=== PATIENT | male | born 1945 | race Caucasian/White ===

== ENCOUNTER 2017-03-22 01:50 | Emergency (ER) | payer OTHER, MEDICARE ==
--- NOTE | 2017-03-22 02:19 | PDOC ---
History of Present Illness - General History Source: Patient Exam Limitations: No Limitations - History of Present Illness Initial Comments: 03/22/17 03:27 The patient is a 72 year old male, with significant past medical history of Parkinson's, CHF, BPH, HTN, depression, who presents from [facility] with head injury and abrasion on the right wong s/p fall. The patient explains that he was attempting to get his cup of water across the room without his walker. He was shuffling while holding onto the bed and fell and hit his head. He did not lose consciousness. He is unsure when his last tetanus shot was. Denies LOC. Denies lightheadedness, dizziness. Denies vision changes. Denies chest pain, SOB. Allergies: penicillin <Felisha Kohli - Last Filed: 03/22/17 03:29> <Sarah Sloan - Last Filed: 03/23/17 04:37> - General Chief Complaint: Injury Stated Complaint: FALL Time Seen by Provider: 03/22/17 02:14 Past History <Felisha Kohli - Last Filed: 03/22/17 03:29> - Past Medical History Anemia: No Asthma: No Cancer: No Cardiac Disorders: No COPD: No CHF: Yes Diabetes: Yes (DIET CONTROL) GI Disorders: No Disorders: Yes (BPH) HTN: Yes Hypercholesterolemia: No Liver Disease: No Psychiatric Problems: Yes (ANXIETY, DEPRESSION) Thyroid Disease: No - Surgical History Abdominal Surgery: No Appendectomy: No Cardiac Surgery: No Cholecystectomy: No Lung Surgery: No Neurologic Surgery: No Orthopedic Surgery: No - Immunization History Immunization Up to Date: Yes - Psycho/Social/Smoking Cessation Hx Anxiety: No Suicidal Ideation: No Smoking History: Never smoked Have you smoked in the past 12 months: No Information on smoking cessation initiated: No Hx Alcohol Use: No Drug/Substance Use Hx: No Substance Use Type: None <Sarah Sloan - Last Filed: 03/23/17 04:37> - Past Medical History Allergies/Adverse Reactions: Allergies Allergy/AdvReac Type Severity Reaction Status Date / Time Penicillins Allergy Unknown Verified 03/22/17 01:59 Home Medications: Ambulatory Orders Aspirin/Calcium Carbonate/Mag [Aspirin Buffered 325 mg Tab] 325 mg PO DAILY Atenolol [Tenormin -] 25 mg PO DAILY 01/22/15 Carbidopa/Levodopa [Sinemet 25-100 mg Tablet] 1 each PO BID 01/22/15 Carbidopa/Levodopa [Sinemet 25-250 mg Tablet] 2 each PO TID 01/22/15 Clonazepam [Klonopin] 0.5 mg PO TID 01/22/15 Docusate Sodium [Colace] 300 mg PO HS 01/22/15 Gabapentin 800 mg PO TID 01/22/15 Lisinopril [Prinivil -] 10 mg PO DAILY 01/22/15 Magnesium Hydrox 2400MG/30Ml [Milk of Magnesia] 30 ml PO DAILY PRN 01/22/15 Polyethylene Glycol 3350 [Miralax (For Daily Use) -] 119 gm PO DAILY PRN Tamsulosin HCl [Flomax] 0.4 mg PO DAILY 01/22/15 Venlafaxine HCl ER [Effexor Xr -] 75 mg PO BID 01/22/15 FENTANYL 25mcg PATCH [DURAGESIC 25mcg PATCH -] 1 each TD Q72H 02/01/16 Finasteride 5 mg PO DAILY 02/01/16 Menthol [Icy Hot] 1 each TP DAILY 02/01/16 Pregabalin [Lyrica] 25 mg PO DAILY 02/01/16 Simethicone 80 mg PO BID 02/01/16 Review of Systems - Review of Systems Able to Perform ROS?: Yes Comments:: 03/22/17 03:28 GENERAL/CONSTITUTIONAL: No fever or chills. No weakness. HEAD, EYES, EARS, NOSE AND THROAT: +head truama. No change in vision. No ear pain or discharge. No sore throat. CARDIOVASCULAR: No chest pain or shortness of breath. RESPIRATORY: No cough, wheezing, or hemoptysis. GASTROINTESTINAL: No nausea, vomiting, diarrhea or constipation. GENITOURINARY: No dysuria, frequency, or change in urination. MUSCULOSKELETAL: No joint or muscle swelling or pain. No neck or back pain. SKIN: +abrasion on the RLE. No rash NEUROLOGIC: No headache, vertigo, loss of consciousness, or change in strength/ sensation. ENDOCRINE: No increased thirst. No abnormal weight change. HEMATOLOGIC/LYMPHATIC: No anemia, easy bleeding, or history of blood clots. ALLERGIC/IMMUNOLOGIC: No hives or skin allergy. <Felisha Kohli - Last Filed: 03/22/17 03:29> *Physical Exam - Vital Signs Last Vital Signs Temp Pulse Resp BP Pulse Ox 98.0 F 90 19 127/73 96 03/22/17 01:59 03/22/17 01:59 03/22/17 01:59 03/22/17 01:59 03/22/17 01:59 - Physical Exam Comments: 03/22/17 03:28 GENERAL: Awake, alert, and fully oriented, in no acute distress HEAD: +Abrasion on the left parietal scalp EYES: PERRLA, EOMI, sclera anicteric, conjunctiva clear ENT: Auricles normal inspection, hearing grossly normal, nares patent, oropharynx clear without exudates. Moist mucosa NECK: Normal ROM, supple, no lymphadenopathy, JVD, or masses LUNGS: Breath sounds equal, clear to auscultation bilaterally. No wheezes, and no crackles HEART: Regular rate and rhythm, normal S1 and S2, no murmurs, rubs or gallops ABDOMEN: Soft, nontender, normoactive bowel sounds. No guarding, no rebound. No masses EXTREMITIES: +Scraped knees bilaterally, abrasions on the right wong. Normal range of motion, no edema. No clubbing or cyanosis. No cords, erythema, or tenderness NEUROLOGICAL: Cranial nerves II through XII grossly intact. Normal speech, normal gait SKIN: Warm, Dry, normal turgor, no rashes or lesions noted. <Felisha Kohli - Last Filed: 03/22/17 03:29> - Vital Signs Last Vital Signs Temp Pulse Resp BP Pulse Ox 98.0 F 90 19 127/73 96 03/22/17 01:59 03/22/17 01:59 03/22/17 01:59 03/22/17 01:59 03/22/17 01:59 <Sarah Sloan - Last Filed: 03/23/17 04:37> ED Treatment Course - RADIOLOGY Radiograph Interpretation: 03/22/17 03:29 Exam: Noncontrast CT head Images: 174 Clinical indication: Status post fall at the halfway. Reformatted coronal and sagittal images were provided. Findings: Multiple axial images were obtained of the brain without contrast. There is no mass-effect, midline shift or hemorrhage. There is no intra-axial or extra-axial fluid collection. Atrophic involutional changes are noted and are relatively mild for the patient's stated age. The visualized portions of the paranasal sinuses are clear. The middle ear cavities and mastoids are clear. No calvarial fractures seen. Impression: No mass effect or intracranial hemorrhage. THIS DOCUMENT HAS BEEN ELECTRONICALLY SIGNED Everardo Beaulieu M.D. <Felisha Kohli - Last Filed: 03/22/17 03:29> Medical Decision Making - Medical Decision Making 03/22/17 03:29 Patient Name: Rehan Jeter This is a preliminary report by imaging senior international tax manager Exam: Noncontrast CT head Images: 174 Clinical indication: Status post fall at the halfway. Reformatted coronal and sagittal images were provided. Findings: Multiple axial images were obtained of the brain without contrast. There is no mass-effect, midline shift or hemorrhage. There is no intra-axial or extra-axial fluid collection. Atrophic involutional changes are noted and are relatively mild for the patient's stated age. The visualized portions of the paranasal sinuses are clear. The middle ear cavities and mastoids are clear. No calvarial fractures seen. Impression: No mass effect or intracranial hemorrhage. THIS DOCUMENT HAS BEEN ELECTRONICALLY SIGNED 03/23/17 04:35 Pt fell at the [place] last night. He was found and sent for CT head. He has scrapes on his knees and shins. He has a scrape on the left parietal area. Head CT normal. 03/23/17 04:36 Pt given a tetanus vaccine in the ER. <Sarah Sloan - Last Filed: 03/23/17 04:37> *DC/Admit/Observation/Transfer - Attestations Scribe Attestion: 03/22/17 03:30 Documentation prepared by HALI Helm, acting as medical technician for Sarah Sloan MD. <Felisha Kohli - Last Filed: 03/22/17 03:29> - Discharge Dispostion Admit: No <Sarah Sloan - Last Filed: 03/23/17 04:37> Diagnosis at time of Disposition: Fall - Discharge Dispostion Disposition: LONG-TERM FACILITY Condition at time of disposition: Stable - Referrals Referrals: Cleopatra Jesus MD [Primary Care Provider] - - Patient Instructions Printed Discharge Instructions: How to Prevent Falls
[2017-03-22] MEDS ORDERED: BACITRACIN 30 GM TUBE TOPICAL OINTMENT TP ONE (02:52)
[2017-03-22] MEDS ORDERED: DIPHTH,PERTUSS(ACELL),TET VAC 0.5 ML VIAL IM ONE (02:56)
[2017-03-22] MEDS ORDERED: OXYCODONE/APAP 5/325MG COMBO TABLET PO ONE (02:57)
[2017-03-22 02:59] VITALS: BP 127/73; PULSE 90; TEMP 98; BMI 30.1
[2017-03-22] MEDS ORDERED: BACITRACIN 0.9 GM PACKET ONE (04:11)
[2017-03-22] MEDS ORDERED: OXYCODONE/APAP 5/325MG COMBO TABLET ONE (04:11)
== END 2017-03-22 04:24 ==
LOC: JER 01:50
PROC: 3E0234Z Introduction of Serum, Toxoid and Vaccine into Muscle, Percutaneous Approach (ICD-10-PCS; principal; 2017-03-22)
DX: S00.01XA Abrasion of scalp, initial encounter (principal); S80.812A Abrasion, left lower leg, initial encounter; S80.811A Abrasion, right lower leg, initial encounter; W18.39XA Other fall on same level, initial encounter; Y93.89 Activity, other specified; Y92.122 Bedroom in nursing home as the place of occurrence of the external cause; I10 Essential (primary) hypertension; F32.9 Major depressive disorder, single episode, unspecified; E11.9 Type 2 diabetes mellitus without complications; N40.0 Benign prostatic hyperplasia without lower urinary tract symptoms; G20 Parkinson's disease
CPT/HCPCS: 70450-TC; 90471; 90715; 99281-25; 99283-25